=== PATIENT | male | born 1945 | race Caucasian/White ===

== ENCOUNTER 2023-08-20 17:12 | Inpatient (IN) ==
[2023-08-20] MEDS: NS 0.9% 500 ml BAG 500 ML IV ONE (17:40)
[2023-08-20 17:42] LABS: ABS Lymphocytes 0.5 10^3/uL (1.0-4.8); ABS Monocytes 0.8 10^3/uL (0.0-1.1); ABS Neutrophils 5.3 10^3/uL (1.5-7.6); Eosinophil % 0.3 %; Hematocrit 35.2 % (38-53); Hemoglobin 11.9 g/dL (13.2-16.3); Lymphocyte % 8.1 %; Mean Corpuscular Hemoglobin 31.5 pg (27-33); Mean Corpuscular Volume 92.7 fL (80-97); Mean Platelet Volume 7.9 fL (7.5-11.2); Nucleated Red Blood Cells % 0.1 %/100WBC (0.0-0.8); Platelet Count 210 10^3/uL (150-450); Red Blood Count 3.79 10^6/uL (4.06-5.63); Red Cell Distribution Width 14.3 % (12-17); White Blood Count 6.6 10^3/uL (3.6-10.2)
[2023-08-20 18:12] LABS: ALT 64 U/L (7-52); Albumin 4.2 g/dL (3.2-5.2); Alkaline Phosphatase 128 U/L (35-149); Blood Urea Nitrogen 19 mg/dL (6-24); CO2 Carbon Dioxide 32 mmol/L (22-32); Calcium 8.5 mg/dL (8.6-10.3); Chloride 68 mmol/L (101-111); Creatinine, Serum 0.95 mg/dL (0.67-1.17); Globulin 2.1 g/dL (2-4); Glucose 143 mg/dL (70-100); Magnesium 1.1 mg/dL (1.9-2.7); Total Bilirubin 1.5 mg/dL (0.2-1.0); Total Protein 6.3 g/dL (6.4-8.9)
[2023-08-20 18:13] LABS: Anion Gap 11 mmol/L (2-16); Sodium 111 mmol/L (135-145)
[2023-08-20 18:16] LABS: Alcohol, S < 13 mg/dL (<13); Lipase 32 U/L (11.0-82.0)
[2023-08-20 19:17] LABS: Urine Appearance Clear; Urine Bilirubin Negative (Negative); Urine Blood Negative (Negative); Urine Color Light-Yellow; Urine Glucose Negative (Negative); Urine Ketones 1+ (Negative); Urine Nitrite Negative (Negative); Urine Protein Trace (Negative); Urine Urobilinogen Negative (Negative)
[2023-08-20] MEDS: Magnesium Sulf 4 GM/100 ML IV 4,000 MG/100 ML BAG IVPB ONE (20:47)
[2023-08-20 20:51] LABS: Potassium Redraw 2.7 mmol/L (3.5-5.0)
[2023-08-20] MEDS: KCL 20 MEQ/100 ML IVPREMIX 20 MEQ/100 ML BAG IV SCH (20:59)
[2023-08-20] MEDS ORDERED: Dextrose 50% Syringe 50 ml 25 GM/50 ML SYRINGE IV PUSH PRN (21:08)
[2023-08-20 21:25] LABS: Anion Gap 13 mmol/L (2-16); Blood Urea Nitrogen 16 mg/dL (6-24); CO2 Carbon Dioxide 30 mmol/L (22-32); Chloride 71 mmol/L (101-111); Creatinine, Serum 0.75 mg/dL (0.67-1.17); Glucose 98 mg/dL (70-100); Magnesium 1.1 mg/dL (1.9-2.7); Sodium 114 mmol/L (135-145); eGFR CKD-EPI 93.5 (>60)
[2023-08-20] MEDS: Multivitamins/Minerals TAB PO SCH (21:44)
[2023-08-20] MEDS: Thiamine 100 MG/ML 2 ml VIAL (200 mg) IM ONE (21:44)
[2023-08-20] MEDS: Insulin GLARGINE 100 un/ml 10 ml VIAL SUBCUT SCH (21:45)
[2023-08-20 23:57] LABS: Urine Potassium Concentration 25.7 mmol/L
[2023-08-20 23:58] LABS: Urine Osmo 324 mOsm/kg (150-1150)
[2023-08-21 00:36] LABS: Osmolality Serum 236 mOsm/kg (275-295)
[2023-08-21 00:48] LABS: Calcium 8.2 mg/dL (8.6-10.3); Creatinine, Serum 0.82 mg/dL (0.67-1.17); Magnesium 2.6 mg/dL (1.9-2.7)
[2023-08-21 00:56] LABS: TSH Ultra Thyroid Stim Horm 1.44 mcIU/mL (0.34-5.60)
[2023-08-21 01:26] LABS: Cholesterol 91 mg/dL; HDL Cholesterol 42.4 mg/dL; LDL Cholesterol 33 mg/dL; Triglycerides 79 mg/dL
[2023-08-21] MEDS: KCL 20 MEQ/100 ML IVPREMIX 20 MEQ/100 ML BAG IV SCH ×2 (01:40→06:38)
[2023-08-21 05:38] LABS: Calcium 7.8 mg/dL (8.6-10.3); Creatinine, Serum 0.71 mg/dL (0.67-1.17); Phosphorus 2.9 mg/dL (2.5-5.0); Potassium 3.1 mmol/L (3.5-5.0); eGFR CKD-EPI 95.1 (>60)
[2023-08-21] MEDS: Potassium Chloride LIQUID 20 MEQ/15 ML LIQUID PO SCH (08:29)
[2023-08-21] MEDS: Ondansetron 4 mg VIAL 2 MG/ML 2 ml VIAL IV PRN (09:32)
[2023-08-21] MEDS ORDERED: Polyethylene Glycol 3350 17 GM PACKET PO PRN (10:05)
[2023-08-21 10:37] LABS: Folate 13.6 ng/mL (5.90-24.80)
[2023-08-21] MEDS ORDERED: Thiamine IV 100 MG/ML VIAL (only for Bannana Bags !) IVPB SCH (14:00)
[2023-08-21] MEDS: Sulfur Hexaflouride MICROSPHR 25 MG VIAL IV ONE (15:14)
[2023-08-21] MEDS: Thiamine IV 500 MG in NS 0.9% 250 ML IV SCH (15:31)
[2023-08-21 17:04] LABS: Calcium 8.3 mg/dL (8.6-10.3); Creatinine, Serum 0.8 mg/dL (0.67-1.17); Magnesium 1.8 mg/dL (1.9-2.7); Potassium 4.4 mmol/L (3.5-5.0); eGFR CKD-EPI 91.7 (>60)
[2023-08-21] MEDS: Magnesium Sulfate 2 gm BAG 2 GM/50 ML BAG IVPB ONE (18:04)
[2023-08-22 05:02] LABS: ABS Eosinophils 0.1 10^3/uL (0.0-0.5); ABS Lymphocytes 0.6 10^3/uL (1.0-4.8); ABS Monocytes 0.5 10^3/uL (0.0-1.1); ABS Neutrophils 4.9 10^3/uL (1.5-7.6); ABS Nucleated RBC 0.01 10^3/ul; Eosinophil % 1.2 %; Hemoglobin 12.1 g/dL (13.2-16.3); Lymphocyte % 10.5 %; Mean Corpuscular Hemoglobin 32.4 pg (27-33); Mean Corpuscular Hgb Conc 34.6 g/dL (31-36); Mean Corpuscular Volume 93.6 fL (80-97); Mean Platelet Volume 8.4 fL (7.5-11.2); Nucleated Red Blood Cells % 0.1 %/100WBC (0.0-0.8); Platelet Count 201 10^3/uL (150-450); Red Blood Count 3.74 10^6/uL (4.06-5.63); Red Cell Distribution Width 14.8 % (12-17); White Blood Count 6.2 10^3/uL (3.6-10.2)
[2023-08-22 05:45] LABS: Anion Gap 11 mmol/L (2-16); Blood Urea Nitrogen 12 mg/dL (6-24); CO2 Carbon Dioxide 25 mmol/L (22-32); Chloride 78 mmol/L (101-111); Creatinine, Serum 0.63 mg/dL (0.67-1.17); Glucose 95 mg/dL (70-100); Magnesium 1.8 mg/dL (1.9-2.7); Potassium 3.6 mmol/L (3.5-5.0); Sodium 114 mmol/L (135-145); eGFR CKD-EPI 98.6 (>60)
[2023-08-22] MEDS: KCL 20 MEQ/100 ML IVPREMIX 20 MEQ/100 ML BAG IV ONE (06:19)
[2023-08-22] MEDS: Magnesium Sulfate IV 1GM/100ML 1 GM/100 ML BAG IV ONE (06:19)
[2023-08-22] MEDS: Potassium Chlor 20 meq TAB.ER PO ONE (06:20)
[2023-08-22] MEDS: Empagliflozin 25 MG TAB PO SCH (09:03)
[2023-08-22 09:14] LABS: .Transferrin 208 mg/dL (203-362); Total Iron Binding Capacity 291 mcg/dL (250-450)
[2023-08-22 09:52] LABS: Ferritin 859.1 ng/mL (24-336)
[2023-08-22] MEDS ORDERED: Ure-Na 15 GM POWD.PACK PO SCH (11:00)
[2023-08-22] MEDS: Ure-Na 15 GM POWD.PACK PO ONE (11:52)
[2023-08-22 15:41] LABS: Anion Gap 11 mmol/L (2-16); Blood Urea Nitrogen 22 mg/dL (6-24); CO2 Carbon Dioxide 25 mmol/L (22-32); Calcium 7.8 mg/dL (8.6-10.3); Chloride 80 mmol/L (101-111); Creatinine, Serum 0.59 mg/dL (0.67-1.17); Glucose 127 mg/dL (70-100); Sodium 116 mmol/L (135-145); eGFR CKD-EPI 100.6 (>60)
[2023-08-23 04:32] LABS: ABS Eosinophils 0.1 10^3/uL (0.0-0.5); ABS Lymphocytes 0.9 10^3/uL (1.0-4.8); ABS Monocytes 0.6 10^3/uL (0.0-1.1); ABS Neutrophils 5.1 10^3/uL (1.5-7.6); Eosinophil % 1.7 %; Hematocrit 37.8 % (38-53); Hemoglobin 12.7 g/dL (13.2-16.3); Lymphocyte % 12.8 %; Mean Corpuscular Hemoglobin 31.5 pg (27-33); Mean Corpuscular Hgb Conc 33.6 g/dL (31-36); Mean Corpuscular Volume 93.8 fL (80-97); Mean Platelet Volume 7.9 fL (7.5-11.2); Nucleated Red Blood Cells % 0.1 %/100WBC (0.0-0.8); Platelet Count 227 10^3/uL (150-450); Red Blood Count 4.03 10^6/uL (4.06-5.63); Red Cell Distribution Width 14.3 % (12-17); White Blood Count 6.8 10^3/uL (3.6-10.2)
[2023-08-23 05:00] LABS: Calcium 8.9 mg/dL (8.6-10.3); Creatinine, Serum 0.77 mg/dL (0.67-1.17); Magnesium 1.6 mg/dL (1.9-2.7); Potassium 3.8 mmol/L (3.5-5.0); eGFR CKD-EPI 92.8 (>60)
[2023-08-23] MEDS: KCL 20 MEQ/100 ML IVPREMIX 20 MEQ/100 ML BAG IV ONE (05:26)
[2023-08-23] MEDS: Magnesium Sulfate 2 gm BAG 2 GM/50 ML BAG IVPB ONE (05:27)
[2023-08-23] MEDS: Magnesium Sulfate IV 1GM/100ML 1 GM/100 ML BAG IV ONE (08:01)
[2023-08-23] MEDS: Ure-Na 15 GM POWD.PACK PO SCH (09:20)
[2023-08-23 12:30] VITALS: BP 133/78
== END 2023-08-23 14:10 | disposition home or self-care (01) | DRG 424 ==
LOC: ED 17:12 → SUATTDRO 20:30 → EDHOLD 20:30 → ICU 21:53
PROVIDERS: ADMIT Hospitalist; ATTEND Internal Medicine Critical Care Medicine

== ENCOUNTER 2023-08-26 18:59 | Observation (INO) ==
[2023-08-26 20:01] LABS: ABS Eosinophils 0.1 10^3/uL (0.0-0.5); ABS Lymphocytes 0.7 10^3/uL (1.0-4.8); ABS Neutrophils 6.4 10^3/uL (1.5-7.6); ABS Nucleated RBC 0.01 10^3/ul; Eosinophil % 0.7 %; Hematocrit 38.9 % (38-53); Lymphocyte % 9.1 %; Mean Corpuscular Hemoglobin 31.2 pg (27-33); Mean Corpuscular Hgb Conc 33.3 g/dL (31-36); Mean Corpuscular Volume 93.6 fL (80-97); Nucleated Red Blood Cells % 0.1 %/100WBC (0.0-0.8); Platelet Count 311 10^3/uL (150-450); Red Blood Count 4.16 10^6/uL (4.06-5.63); Red Cell Distribution Width 14.9 % (12-17); White Blood Count 8.3 10^3/uL (3.6-10.2)
[2023-08-26 20:15] LABS: INR 1.21 (0.83-1.13)
[2023-08-26 20:28] LABS: High Sens Troponin Baseline 7 pg/mL (<20)
[2023-08-26 20:55] LABS: ALT 78 U/L (7-52); Albumin 4.2 g/dL (3.2-5.2); Alcohol, S < 13 mg/dL (<13); Alkaline Phosphatase 120 U/L (35-149); Anion Gap 11 mmol/L (2-16); Blood Urea Nitrogen 32 mg/dL (6-24); CO2 Carbon Dioxide 27 mmol/L (22-32); Calcium 9.2 mg/dL (8.6-10.3); Chloride 84 mmol/L (101-111); Creatinine, Serum 1.29 mg/dL (0.67-1.17); Globulin 2.1 g/dL (2-4); Glucose 198 mg/dL (70-100); Magnesium 1.5 mg/dL (1.9-2.7); Sodium 122 mmol/L (135-145); Total Bilirubin 0.8 mg/dL (0.2-1.0); Total Protein 6.3 g/dL (6.4-8.9); eGFR CKD-EPI 57.5 (>60)
[2023-08-26 21:37] LABS: High Sensitivity Troponin 1 Hr 6 pg/mL (<20)
[2023-08-26 21:47] LABS: Potassium Redraw 3.8 mmol/L (3.5-5.0)
[2023-08-26 22:40] LABS: Urine Appearance Clear; Urine Bilirubin Negative (Negative); Urine Blood Negative (Negative); Urine Color Yellow; Urine Glucose 4+ (>=1000 mg/dL) (Negative); Urine Ketones Trace (Negative); Urine Nitrite Negative (Negative); Urine Protein Trace (Negative); Urine Specific Gravity 1.029 (1.002-1.030); Urine Urobilinogen 1+ (Negative); Urine pH 6.5 (5.0-8.0)
[2023-08-27] MEDS ORDERED: Dextrose 50% Syringe 50 ml 25 GM/50 ML SYRINGE IV PUSH PRN (00:19)
[2023-08-27] MEDS: Magnesium Sulfate 2 gm BAG 2 GM/50 ML BAG IVPB ONE (00:34)
[2023-08-27] MEDS: Insulin GLARGINE 100 un/ml 10 ml VIAL SUBCUT ONE (00:46)
[2023-08-27] MEDS: NS 0.9% 500 ml BAG 500 ML IV ONE (01:54)
[2023-08-27 08:29] LABS: Creatinine, Serum 1.19 mg/dL (0.67-1.17); Potassium 3.8 mmol/L (3.5-5.0); eGFR CKD-EPI 63.3 (>60)
[2023-08-27] MEDS: Multivitamins/Minerals TAB PO SCH (08:46)
[2023-08-27] MEDS: Empagliflozin 25 MG TAB PO SCH (08:47)
[2023-08-27] MEDS ORDERED: Ure-Na 15 GM POWD.PACK PO SCH (09:00)
[2023-08-27] MEDS: Polyethylene Glycol 3350 17 GM PACKET PO PRN (14:24)
[2023-08-27] MEDS ORDERED: Polyethylene Glycol 3350 17 GM PACKET PO SCH (21:00)
[2023-08-27] MEDS: Insulin GLARGINE 100 un/ml 10 ml VIAL SUBCUT SCH (21:15)
[2023-08-28 12:10] LABS: Calcium 9.2 mg/dL (8.6-10.3); Creatinine, Serum 0.89 mg/dL (0.67-1.17); eGFR CKD-EPI 88.8 (>60)
[2023-08-28 13:51] VITALS: BP 133/88
== END 2023-08-28 14:00 | disposition home or self-care (01) ==
LOC: ED 18:59 → EDHOLD 18:59 → SUATTDRO 23:31 → MED 08-27 02:07
PROVIDERS: ADMIT Hospitalist; ATTEND Internal Medicine